=== PATIENT | male | born 1960 | race Caucasian/White ===

== ENCOUNTER 2023-10-19 02:17 | Emergency (ER) | payer OTHER ==
[~2023-10-19] VITALS: Ht 177.8 cm; Wt 81.7 kg
[2023-10-19 02:47] LABS: BASOPHILS PERCENT AUTO 1 % (0-2); EOSINOPHILS ABSOLUTE AUTO 0.45 K/mm3 (0.00-0.68); EOSINOPHILS PERCENT AUTO 3 % (0-6); Hematocrit 40.9 % (37.0-53.0); Hemoglobin 12.8 g/dL (13.5-17.5); IMMATURE GRAN ABSOLUTE AUTO 0.18 K/mm3 (0.00-0.10); IMMATURE GRAN PERCENT AUTO 1 % (0-1); LYMPHOCYTES PERCENT AUTO 27 % (21-46); MONOCYTES PERCENT AUTO 11 % (4-13); Mean Corpuscular HGB 23.1 pg (26.0-34.0); Mean Corpuscular HGB Conc 31.3 g/dL (31.5-36.5); Mean Corpuscular Volume 74 fL (80-100); Mean Platelet Volume 10.3 fL (9.1-12.4); NEUTROPHILS ABSOLUTE AUTO 9.94 K/mm3 (1.96-9.15); NEUTROPHILS PERCENT AUTO 58 % (41-73); NRBC ABSOLUTE 6.49 K/mm3 (0.00-0.02); NRBC Auto 37.8 /100 WBC (0.0-0.2); Platelet Count 516 K/mm3 (150-400); RDW Coefficient Variation 22.4 % (11.7-14.2); RDW Standard Deviation 53.1 fL (35.1-46.3); Red Blood Cell Count 5.55 M/mm3 (4.30-5.90); White Blood Cell Count 17.17 K/mm3 (4.00-11.30)
[2023-10-19 03:06] LABS: Source, Urine Voided
[2023-10-19 03:08] LABS: Bilirubin, Urine Neg (Neg); Blood, Urine Neg (Neg); Glucose Qualitative, Urine Neg (Neg); Ketones, Urine Neg (Neg); Leukocyte Esterase, Urine Neg (Neg); Nitrite, Urine Neg (Neg); Protein, Urine Neg (Neg); Urobilinogen, Urine NORM (Normal)
[2023-10-19 03:16] LABS: Albumin, Blood 3.7 g/dL (3.4-5.0); Albumin/Globulin Ratio 0.9 (0.8-1.8); Bilirubin, Total 1.7 mg/dL (0.1-1.0); Bun/Creatinine Ratio 13.9 (12.0-20.0); Calcium, Blood 8.9 mg/dL (8.5-10.1); Creatinine, Blood 0.79 mg/dL (0.60-1.20); Potassium, Blood 4.2 mmol/L (3.5-5.5); Total Protein, Blood 7.7 g/dL (6.4-8.2)
[2023-10-19 03:31] LABS: Appearance, Urine Clear (Clear); Color, Urine Yellow (P-Yellow)
[2023-10-19 04:26] VITALS: BP 126/87
== END 2023-10-19 05:37 | disposition home or self-care (01) ==
LOC: ER 02:17
PROVIDERS: Student in an Organized Health Care Education/Training Program
DX: R33.9 Retention of urine, unspecified (principal); R10.31 Right lower quadrant pain; D72.829 Elevated white blood cell count, unspecified; Z88.8 Allergy status to other drugs, medicaments and biological substances
CPT/HCPCS: 51702; 51798; 80053; 81003; 85025

== ENCOUNTER 2023-11-05 03:00 | Emergency (ER) | payer OTHER ==
[~2023-11-05] VITALS: Ht 177.8 cm; Wt 81.7 kg
[2023-11-05 03:24] VITALS: BP 139/81
[2023-11-05 04:34] LABS: Source, Urine Clean Catch
[2023-11-05 04:36] LABS: Bilirubin, Urine Neg (Neg); Blood, Urine Neg (Neg); Glucose Qualitative, Urine Neg (Neg); Ketones, Urine Neg (Neg); Leukocyte Esterase, Urine Neg (Neg); Nitrite, Urine Neg (Neg); Protein, Urine Neg (Neg); Urobilinogen, Urine NORM (Normal)
[2023-11-05 04:48] LABS: Appearance, Urine Clear (Clear); Color, Urine Yellow (P-Yellow)
== END 2023-11-05 05:52 | disposition home or self-care (01) ==
LOC: ER 03:00
PROVIDERS: Emergency Medicine
DX: E86.0 Dehydration (principal); N40.0 Benign prostatic hyperplasia without lower urinary tract symptoms; Z88.8 Allergy status to other drugs, medicaments and biological substances
CPT/HCPCS: 51798; 81003; 99283-25

== ENCOUNTER 2025-04-11 10:41 | Emergency (ER) | payer OTHER ==
[~2025-04-11] VITALS: Ht 177.8 cm; Wt 86.2 kg
[2025-04-11] MEDS ORDERED: Diltiazem HCl 5 MG / ML 5ML Vial IV ONE (11:00)
[2025-04-11 11:32] LABS: BASOPHILS ABSOLUTE AUTO 0.07 K/mm3 (0.00-0.23); BASOPHILS PERCENT AUTO 1 % (0-2); EOSINOPHILS ABSOLUTE AUTO 0.15 K/mm3 (0.00-0.68); EOSINOPHILS PERCENT AUTO 1 % (0-6); Hematocrit 35.6 % (37.0-53.0); Hemoglobin 11.2 g/dL (13.5-17.5); IMMATURE GRAN ABSOLUTE AUTO 0.12 K/mm3 (0.00-0.10); IMMATURE GRAN PERCENT AUTO 1 % (0-1); LYMPHOCYTES ABSOLUTE AUTO 3.12 K/mm3 (0.84-5.20); LYMPHOCYTES PERCENT AUTO 21 % (21-46); MONOCYTES ABSOLUTE AUTO 1.50 K/mm3 (0.16-1.47); MONOCYTES PERCENT AUTO 10 % (4-13); Mean Corpuscular HGB Conc 31.5 g/dL (31.5-36.5); Mean Corpuscular Volume 77 fL (80-100); NEUTROPHILS ABSOLUTE AUTO 10.03 K/mm3 (1.96-9.15); NEUTROPHILS PERCENT AUTO 67 % (41-73); NRBC ABSOLUTE 10.80 K/mm3 (0.00-0.02); NRBC Auto 72.0 /100 WBC (0.0-0.2); Platelet Count 291 K/mm3 (150-400); RDW Coefficient Variation 24.7 % (11.7-14.2); RDW Standard Deviation 60.5 fL (35.1-46.3)
[2025-04-11 12:00] VITALS: BP 126/98
[2025-04-11 12:10] LABS: Calcium, Ionized (POC) 1.12 mmol/L (1.10-1.46); Chloride (POC) 106 mmol/L (98-108); Creatinine (POC) 0.8 mg/dL (0.8-1.3); Glucose (ISTAT POC) 90 mg/dL (70-99); Hematocrit (POC) 45.0 % (41.0-53.0); Hemoglobin (POC) 15.3 g/dL (13.5-17.5); Potassium (POC) 3.7 mmol/L (3.5-5.5); Sodium (POC) 141 mmol/L (135-148); Total CO2 (POC) 21 mmol/L (21-32)
[2025-04-11] MEDS ORDERED: METO25ER PO (12:16)
[2025-04-11 14:14] LABS: Alanine Aminotransfer (ALT/SGP 29.0 U/L (12-78); Albumin, Blood 3.5 g/dL (3.4-5.0); Albumin/Globulin Ratio 1.0 (0.8-1.8); Anion Gap 17.0 mmol/L (3-11); Aspartate Aminotrans (AST/SGOT 60.0 U/L (12-37); Bilirubin, Total 5.5 mg/dL (0.1-1.0); Blood Urea Nitrogen 10.0 mg/dL (8-24); CO2, Blood 22.0 mmol/L (21-32); Calcium, Blood 8.2 mg/dL (8.5-10.1); Chloride, Blood 105.0 mmol/L (98-108); Creatinine, Blood 0.7 mg/dL (0.60-1.20); Globulin, Blood 3.6 g/dL (2.2-4.0); Glucose, Blood 79.0 mg/dL (70-99); Magnesium, Blood 1.9 mg/dL (1.6-2.4); Potassium, Blood 4.3 mmol/L (3.5-5.5); Sodium, Blood 140.0 mmol/L (136-145); Total Protein, Blood 7.1 g/dL (6.4-8.2)
== END 2025-04-11 12:50 | disposition home or self-care (01) ==
LOC: ER 10:41
PROVIDERS: Student in an Organized Health Care Education/Training Program
DX: I48.91 Unspecified atrial fibrillation (principal); J44.89 Other specified chronic obstructive pulmonary disease; Z86.718 Personal history of other venous thrombosis and embolism; Z86.711 Personal history of pulmonary embolism; Z88.8 Allergy status to other drugs, medicaments and biological substances; Z79.01 Long term (current) use of anticoagulants
CPT/HCPCS: 71045; 80047; 80053; 83735; 83880; 85014; 85025; 93005; 93010; 96374; 99285-25; A9270

== ENCOUNTER 2025-04-17 15:58 | Inpatient (IN) | payer OTHER ==
[~2025-04-17] VITALS: Ht 177.8 cm; Wt 81.0 kg
[~2025-04-17 15:58] MED LIST: METO25ER PO
[2025-04-17] MEDS ORDERED: NS 500 ML IV SCH (17:10)
[2025-04-17] MEDS ORDERED: Metoprolol Tartrate 1 MG/ML 5 ML VIAL IV PRN ×2 (17:10→22:20)
[2025-04-17 17:25] LABS: BASOPHILS ABSOLUTE AUTO 0.08 K/mm3 (0.00-0.23); BASOPHILS PERCENT AUTO 1 % (0-2); EOSINOPHILS ABSOLUTE AUTO 0.21 K/mm3 (0.00-0.68); EOSINOPHILS PERCENT AUTO 1 % (0-6); Hematocrit 36.9 % (37.0-53.0); Hemoglobin 11.7 g/dL (13.5-17.5); IMMATURE GRAN ABSOLUTE AUTO 0.10 K/mm3 (0.00-0.10); IMMATURE GRAN PERCENT AUTO 1 % (0-1); LYMPHOCYTES ABSOLUTE AUTO 4.18 K/mm3 (0.84-5.20); LYMPHOCYTES PERCENT AUTO 28 % (21-46); MONOCYTES ABSOLUTE AUTO 1.70 K/mm3 (0.16-1.47); MONOCYTES PERCENT AUTO 11 % (4-13); Mean Corpuscular HGB Conc 31.7 g/dL (31.5-36.5); Mean Corpuscular Volume 78 fL (80-100); NEUTROPHILS ABSOLUTE AUTO 8.68 K/mm3 (1.96-9.15); NEUTROPHILS PERCENT AUTO 58 % (41-73); NRBC ABSOLUTE 6.58 K/mm3 (0.00-0.02); NRBC Auto 44.0 /100 WBC (0.0-0.2); Platelet Count 315 K/mm3 (150-400); RDW Coefficient Variation 24.1 % (11.7-14.2); RDW Standard Deviation 59.9 fL (35.1-46.3)
[2025-04-17 17:40] LABS: Prothrombin Time Results 13.4 Sec (9.7-11.5)
[2025-04-17 18:21] LABS: Alanine Aminotransfer (ALT/SGP 29.0 U/L (12-78); Albumin, Blood 3.6 g/dL (3.4-5.0); Albumin/Globulin Ratio 0.9 (0.8-1.8); Anion Gap 8.0 mmol/L (3-11); Aspartate Aminotrans (AST/SGOT 37.0 U/L (12-37); Bilirubin, Total 4.8 mg/dL (0.1-1.0); Blood Urea Nitrogen 11.0 mg/dL (8-24); CO2, Blood 24.0 mmol/L (21-32); Calcium, Blood 8.3 mg/dL (8.5-10.1); Chloride, Blood 107.0 mmol/L (98-108); Creatinine, Blood 0.72 mg/dL (0.60-1.20); Globulin, Blood 4.0 g/dL (2.2-4.0); Glucose, Blood 90.0 mg/dL (70-99); Potassium, Blood 3.4 mmol/L (3.5-5.5); Sodium, Blood 136.0 mmol/L (136-145); Total Protein, Blood 7.6 g/dL (6.4-8.2)
[2025-04-17] MEDS ORDERED: Magnesium Sulf 2 GM/Water 50ML 50 ML IV ONE (19:00)
[2025-04-17] MEDS ORDERED: Albuterol 2.5 MG/3 ML VIAL INH PRN (21:50)
[2025-04-17] MEDS ORDERED: Ipratropium/Albuterol SulF 2.5-0.5MG/3 ML Amp INH SCH (21:50)
[2025-04-17] MEDS ORDERED: Mometasone Furoate Inhaler 220 mcg 14 ACT INH SCH (21:50)
[2025-04-17] MEDS ORDERED: Furosemide 10 MG / ML 2ML Vial IV ONE (21:50)
[2025-04-17] MEDS ORDERED: Ondansetron HCl 2 MG / ML 2ML Vial IV PRN (21:50)
[2025-04-17 23:44] VITALS: BP 104/80
[2025-04-18 02:00] LABS: Hematocrit 36.0 % (37.0-53.0); Hemoglobin 11.3 g/dL (13.5-17.5); Mean Corpuscular HGB Conc 31.4 g/dL (31.5-36.5); Mean Corpuscular Volume 77 fL (80-100); NRBC ABSOLUTE 6.00 K/mm3 (0.00-0.02); NRBC Auto 38.5 /100 WBC (0.0-0.2); Platelet Count 305 K/mm3 (150-400); RDW Coefficient Variation 23.9 % (11.7-14.2); RDW Standard Deviation 58.3 fL (35.1-46.3)
[2025-04-18 02:26] LABS: Anion Gap 8.0 mmol/L (3-11); Blood Urea Nitrogen 13.0 mg/dL (8-24); CO2, Blood 26.0 mmol/L (21-32); Calcium, Blood 8.1 mg/dL (8.5-10.1); Chloride, Blood 108.0 mmol/L (98-108); Creatinine, Blood 0.82 mg/dL (0.60-1.20); Glucose, Blood 105.0 mg/dL (70-99); Magnesium, Blood 2.1 mg/dL (1.6-2.4); Potassium, Blood 3.6 mmol/L (3.5-5.5); Sodium, Blood 138.0 mmol/L (136-145)
[2025-04-18 03:12] VITALS: BP 94/76
[2025-04-18] MEDS ORDERED: ELIQUIS5 M2 PO (04:08)
[2025-04-18] MEDS ORDERED: TIOT18 INH (04:08)
--- NOTE | 2025-04-18 06:08 | NUR ---
SHIFT SUMMARY PT ARRIVED A&OX4. VSS ON 2L NC (BASELINE) >92%. NO SOB NOTED HOWEVER VERY WEAK ON FEET. ON TELE PT ARRIVED IN AFLUTTER 90s-100s. NO CHEST PAIN OR PRESSURE PER PT. IV LASIX GIVEN PER EMAR. PT ABLE TO STAND AT BEDSIDE TO USE URINAL. SEE CHART FOR I&Os. PT RESTING COMFORTABLY IN BED WITH NO FURTHER QUESTIONS OR CONCERNS AT THIS TIME. WILL CONTINUE WITH PLAN OF CARE.
[2025-04-18 07:22] VITALS: BP 103/69
[2025-04-18] MEDS ORDERED: Amiodarone HCl 450 MG in NS 250 ML IV SCH (10:30)
[2025-04-18] MEDS ORDERED: Amiodarone HCl 150 MG in NS 100 ML IV ONE (10:50)
[2025-04-18 10:52] VITALS: BP 102/86
[2025-04-18 15:18] VITALS: BP 123/86
--- NOTE | 2025-04-18 18:16 | NUR ---
SHIFT SUMMARY; ASSUMED CARE AT 0700. A/A/OX4. COOPERATIVE WITH CARE. HR IN AM FLUTTER 130'S. 5MG IV LOPRESSOR PUSH PER EMAR WITH MINIMAL RESULTS. SPOKE WITH DR. REYES. AMNIO STARTED PER EMAR. 2L 02 VIA NC WHICH IS BASELINE. SPEAKING IN FULL SENTENCES. UP TO BEDSIDE IN ROOM TO USE URNIAL. USES CALL LIGHT. VSS, WILL CONTINUE TO MONITOR AND TREAT UNTIL REPORT GIVEN TO NOC SHIFT RN.
[2025-04-18 20:13] VITALS: BP 102/76
[2025-04-19] VITALS (7 sets, daily range): BP systolic 96–120; BP diastolic 70–85
[2025-04-19 04:12] LABS: BASOPHILS ABSOLUTE AUTO 0.07 K/mm3 (0.00-0.23); BASOPHILS PERCENT AUTO 1 % (0-2); EOSINOPHILS ABSOLUTE AUTO 0.25 K/mm3 (0.00-0.68); EOSINOPHILS PERCENT AUTO 2 % (0-6); Hematocrit 33.1 % (37.0-53.0); Hemoglobin 10.8 g/dL (13.5-17.5); IMMATURE GRAN ABSOLUTE AUTO 0.13 K/mm3 (0.00-0.10); IMMATURE GRAN PERCENT AUTO 1 % (0-1); LYMPHOCYTES ABSOLUTE AUTO 3.73 K/mm3 (0.84-5.20); LYMPHOCYTES PERCENT AUTO 25 % (21-46); MONOCYTES ABSOLUTE AUTO 1.85 K/mm3 (0.16-1.47); MONOCYTES PERCENT AUTO 12 % (4-13); Mean Corpuscular HGB Conc 32.6 g/dL (31.5-36.5); Mean Corpuscular Volume 76 fL (80-100); NEUTROPHILS ABSOLUTE AUTO 9.07 K/mm3 (1.96-9.15); NEUTROPHILS PERCENT AUTO 60 % (41-73); NRBC ABSOLUTE 6.44 K/mm3 (0.00-0.02); NRBC Auto 42.6 /100 WBC (0.0-0.2); Platelet Count 291 K/mm3 (150-400); RDW Coefficient Variation 23.3 % (11.7-14.2); RDW Standard Deviation 55.4 fL (35.1-46.3)
[2025-04-19 04:31] LABS: Alanine Aminotransfer (ALT/SGP 24.0 U/L (12-78); Albumin, Blood 3.1 g/dL (3.4-5.0); Albumin/Globulin Ratio 0.9 (0.8-1.8); Anion Gap 11.0 mmol/L (3-11); Aspartate Aminotrans (AST/SGOT 33.0 U/L (12-37); Bilirubin, Total 4.6 mg/dL (0.1-1.0); Blood Urea Nitrogen 14.0 mg/dL (8-24); CO2, Blood 23.0 mmol/L (21-32); Calcium, Blood 8.1 mg/dL (8.5-10.1); Chloride, Blood 109.0 mmol/L (98-108); Creatinine, Blood 0.71 mg/dL (0.60-1.20); Globulin, Blood 3.6 g/dL (2.2-4.0); Glucose, Blood 107.0 mg/dL (70-99); Potassium, Blood 3.7 mmol/L (3.5-5.5); Sodium, Blood 139.0 mmol/L (136-145); Total Protein, Blood 6.7 g/dL (6.4-8.2)
--- NOTE | 2025-04-19 05:27 | NUR ---
AMIODARONE INFUSION STOPPED AT 0520.
--- NOTE | 2025-04-19 06:37 | NUR ---
PT STABLE THROUGHOUT SHIFT. PT AOX4, INDEPENDENT IN ROOM. PT USES URINAL AT BEDSIDE. PT HAS HAD VERY GOOD URINARY OUTPUT. URINE HAS STARTED TO DARKEN IN COLOR, GOING FROM YELLOW TO TEA COLORED AT THIS TIME. EDEMA MARKEDLY IMPROVED. HR IMPROVED FROM 120 TO 80-90s. PT REMAINS IN A.FLUTTER. PT ON BASELINE O2 2L AND MAINTAING GOOD SAT. ALL OTHER VITAL SIGNS WNL.
--- NOTE | 2025-04-19 07:03 | NUR ---
AMIODARONE RESTARTED AT 0630, NO PO AMIODARONE AVAILABLE AT THIS TIME.
--- NOTE | 2025-04-19 17:50 | NUR ---
SHIFT SUMMARY PATIENT AOX4 ABLE TO MAKE NEEDS KNOWN. HE DENIES CHEST PAIN OR SOB TODAY. HE DOES STATE HE HAD PRESSURE WITH ACTIVITY. HIS VITALS ARE STABLE WITH A HR 100 TO 120s. CARDIO AND PULM AND HOSP SPOKE WITH PATIENT AT BEDSIDE ALL HIS QUESTIONS ANSWERED.
[2025-04-19 17:59] LABS: HIV 1,2 COMBO ANTIGEN/ANTIBODY Negative (Negative)
--- NOTE | 2025-04-19 20:37 | NUR ---
ASSUMPTION OF CARE PT A&O X4, ANXIOUS AT TIMES, COOPERATIVE TO CARE. HR IN THE 110'S-120'S, PT DID REACH TO 127BPM WHILE STANDING TO USE URINAL. HE DENIES ANY CP/PRESSURE, SBP IN THE 100'S, MAP >65. PT O2 AT 90% ON 2L, PER PT 2L IS BASELINE FOR HIM. PT OCASSIONALLY DESATS TO THE LOW 80'S IF HE STARTS TALKING A BUNCH OR TAKES OFF HIS OXYGEN. PT HAS EDEMA IN BLE. PT DIURESING WELL. PT TO BE NPO AT MIDNIGHT FOR POSSIBLE CARDIOVERSION IN THE AM. PT RESTING IN BED AT THIS TIME. CALL LIGHT IN REACH.
[2025-04-19 22:40] LABS: CYCLIC CITRULLINATED PEP,IGG/A 8 Units (0-19)
[2025-04-19 23:15] LABS: RHEUMATOID FACTOR <10 IU/mL (0-14)
[2025-04-20] VITALS (8 sets, daily range): BP systolic 92–116; BP diastolic 62–82
[2025-04-20 03:38] LABS: BASOPHILS ABSOLUTE AUTO 0.07 K/mm3 (0.00-0.23); BASOPHILS PERCENT AUTO 1 % (0-2); EOSINOPHILS ABSOLUTE AUTO 0.30 K/mm3 (0.00-0.68); EOSINOPHILS PERCENT AUTO 2 % (0-6); Hematocrit 33.8 % (37.0-53.0); Hemoglobin 10.7 g/dL (13.5-17.5); IMMATURE GRAN ABSOLUTE AUTO 0.10 K/mm3 (0.00-0.10); IMMATURE GRAN PERCENT AUTO 1 % (0-1); LYMPHOCYTES ABSOLUTE AUTO 2.82 K/mm3 (0.84-5.20); LYMPHOCYTES PERCENT AUTO 21 % (21-46); MONOCYTES ABSOLUTE AUTO 1.62 K/mm3 (0.16-1.47); MONOCYTES PERCENT AUTO 12 % (4-13); Mean Corpuscular HGB Conc 31.7 g/dL (31.5-36.5); Mean Corpuscular Volume 76 fL (80-100); NEUTROPHILS ABSOLUTE AUTO 8.65 K/mm3 (1.96-9.15); NEUTROPHILS PERCENT AUTO 64 % (41-73); NRBC ABSOLUTE 6.20 K/mm3 (0.00-0.02); NRBC Auto 45.7 /100 WBC (0.0-0.2); Platelet Count 301 K/mm3 (150-400); RDW Coefficient Variation 23.4 % (11.7-14.2); RDW Standard Deviation 55.7 fL (35.1-46.3)
[2025-04-20 04:01] LABS: Anion Gap 8.0 mmol/L (3-11); Blood Urea Nitrogen 15.0 mg/dL (8-24); CO2, Blood 26.0 mmol/L (21-32); Calcium, Blood 8.2 mg/dL (8.5-10.1); Chloride, Blood 107.0 mmol/L (98-108); Creatinine, Blood 0.76 mg/dL (0.60-1.20); Glucose, Blood 104.0 mg/dL (70-99); Potassium, Blood 3.7 mmol/L (3.5-5.5); Sodium, Blood 137.0 mmol/L (136-145)
--- NOTE | 2025-04-20 05:05 | NUR ---
SHIFT SUMMARY PT A&O X4, PT ANXIOUS T/O SHIFT ABOUT CONTROLLING HIS HR. THIS RN SPENT LOTS OF TIME EDUCATING PT AND REASSURING PT. PT IN AFLUTTER. AT START OF SHIFT WHILE PT WAS AWAKE HR IN THE 110'S-120'S. EARLY IN SHIFT PT STARTED TO RELAX AND REST IN BED, PT HR DECREASED AND HAS REMANINED IN THE 70'S-80'S WITH OCASSIONAL RATES IN THE LOW 100'S BUT NOT SUSTAINING ABOVE 100. PT DENIES ANY CP/PRESSURE T/O NIGHT. SBP SOFT IN THE 90'S-100'S, ASYMPTOMATIC. MAP >65. PTS O2 >90% ON 2-3L VIA NC, PT ON 2L AT THIS TIME WITH BASELINE OF 2L. HE DOES HAVE SOME SOB WITH EXERTION. PT NPO SINCE MIDNIGHT FOR POSSIBLE CARDIOVERSION THIS AM. PT RESTING IN BED A THIS TIME. CALL LIGHT IN REACH. WILL MONITOR PT AND REPORT TO ONCOMING RN.
[2025-04-20] MEDS ORDERED: Ipratropium/Albuterol SulF 2.5-0.5MG/3 ML Amp INH PRN (13:55)
--- NOTE | 2025-04-20 18:01 | NUR ---
SHIFT SUMMARY PATIENT AOX4 ABLE TO MAKE NEEDS KNOWN. DENIES CHEST PAIN OR SOB. HE IS ON 2L O2. HE IS TOLERATING HIS MEALS AND AMBULATING TO THE RESTROOM INDEPENDENTLY. HE SPOKE WITH THE HOSP CARD AND PULM DOCTORS AT BEDSIDE. HE DID NOT GO FOR CARDIOVERSION TODAY. THE CLEANERS STARTED HIM ON DIGOXIN. HIS VITALS ARE STABLE WITH A SOFT BP MAP GREATER THAN 65.
[2025-04-20] MEDS ORDERED: Morphine Sulfate 4 MG/1 ML Injection IV PRN (18:35)
[2025-04-20] MEDS ORDERED: OxyCODONE 5 mg/Acetamin 325 mg TABLET PO PRN (19:10)
--- NOTE | 2025-04-20 19:11 | NUR ---
CHEST PAIN PATIENT STATED HE HAD SOME MORE CHEST PAIN 4/10 STABBING THAT COMES AND GOES FOR THE LAST 30 MIN VITALS STABLE HOSPITALIST AWARE
[2025-04-21 03:28] VITALS: BP 93/67
[2025-04-21 03:54] LABS: BASOPHILS ABSOLUTE AUTO 0.05 K/mm3 (0.00-0.23); BASOPHILS PERCENT AUTO 0 % (0-2); EOSINOPHILS ABSOLUTE AUTO 0.28 K/mm3 (0.00-0.68); EOSINOPHILS PERCENT AUTO 2 % (0-6); Hematocrit 34.6 % (37.0-53.0); Hemoglobin 11.0 g/dL (13.5-17.5); IMMATURE GRAN ABSOLUTE AUTO 0.21 K/mm3 (0.00-0.10); IMMATURE GRAN PERCENT AUTO 1 % (0-1); LYMPHOCYTES ABSOLUTE AUTO 2.72 K/mm3 (0.84-5.20); LYMPHOCYTES PERCENT AUTO 16 % (21-46); MONOCYTES ABSOLUTE AUTO 1.89 K/mm3 (0.16-1.47); MONOCYTES PERCENT AUTO 11 % (4-13); Mean Corpuscular HGB Conc 31.8 g/dL (31.5-36.5); Mean Corpuscular Volume 76 fL (80-100); NEUTROPHILS ABSOLUTE AUTO 11.86 K/mm3 (1.96-9.15); NEUTROPHILS PERCENT AUTO 70 % (41-73); NRBC ABSOLUTE 5.00 K/mm3 (0.00-0.02); NRBC Auto 29.4 /100 WBC (0.0-0.2); Platelet Count 285 K/mm3 (150-400); RDW Coefficient Variation 23.2 % (11.7-14.2); RDW Standard Deviation 55.8 fL (35.1-46.3)
[2025-04-21 04:14] LABS: Alanine Aminotransfer (ALT/SGP 23.0 U/L (12-78); Albumin, Blood 3.1 g/dL (3.4-5.0); Albumin/Globulin Ratio 0.8 (0.8-1.8); Anion Gap 10.0 mmol/L (3-11); Aspartate Aminotrans (AST/SGOT 32.0 U/L (12-37); Bilirubin, Total 4.4 mg/dL (0.1-1.0); Blood Urea Nitrogen 15.0 mg/dL (8-24); CO2, Blood 24.0 mmol/L (21-32); Calcium, Blood 8.2 mg/dL (8.5-10.1); Chloride, Blood 107.0 mmol/L (98-108); Creatinine, Blood 0.65 mg/dL (0.60-1.20); Globulin, Blood 3.7 g/dL (2.2-4.0); Glucose, Blood 91.0 mg/dL (70-99); Potassium, Blood 3.9 mmol/L (3.5-5.5); Sodium, Blood 137.0 mmol/L (136-145); Total Protein, Blood 6.8 g/dL (6.4-8.2)
--- NOTE | 2025-04-21 05:25 | NUR ---
SHIFT SUMMARY PT A&O X4, ANXIOUS AT TIMES, COOPERATIVE TO CARE. AT START OF SHIFT PT HR IN THE 110'S. PT RECIEVED IV DIGOXIN. HR T/O THE NIGHT HAS BEEN IN THE 60'S, AFLUTTER. HE HAD SOME CP AT START OF SHIFT BUT IT RESOLVED AND HE HAS DENIED ANY SINCE. SBP SOFT IN THE 90'S, MAP >65. O2 >92% ON 2L VIA NC, 2L BL FOR PT. PT RESTING IN BED AT THIS TIME. CALL LIGHT IN REACH. WILL MONITOR PT AND REPORT TO ONCOMING RN.
[2025-04-21 08:08] VITALS: BP 110/72
[2025-04-21] MEDS ORDERED: METO50ER PO (09:50)
[2025-04-21] MEDS ORDERED: Amiodarone HCl200 MG PO (09:53)
[2025-04-21] MEDS ORDERED: DIGOX125 MC1 PO (09:54)
[2025-04-21] MEDS ORDERED: ASMANEX220 M14 INH (09:56)
[2025-04-21] MEDS ORDERED: FURO40 PO (09:57)
[2025-04-21] MEDS ORDERED: K-TAB ER20 ME1 PO (09:58)
[2025-04-21] MEDS ORDERED: BUSP5 PO (10:02)
[2025-04-21 11:29] VITALS: BP 110/87
--- NOTE | 2025-04-21 14:12 | NUR ---
DISCHARGE SUMMARY PT A&OX4, VSS. PT CLEARED FOR DC. DISCHARGE MEDICATION REVIEWED EXTENSIVELY W/ PT, MEDICATION SCHEDULE/CHART MADE CUSTOM TO HELP AVOID AM/PM ERRORS. MEDICATIONS FAXED TO [facility]. TELEMETRY REMOVED. IV REMOVED. DISCHARGE INSTRUCTIONS AND FOLLOW UP APPTS REVIEWED WITH PT AND GIVEN IN WRITING. PT WHEELED TO PRIVATE VEHICLE WITH ALL BELONGINGS.
[2025-04-22 18:28] LABS: ANTINUCLEAR AB (ANA),HEP-2,IGG Detected (<1:80)
== END 2025-04-21 12:30 | disposition home or self-care (01) | DRG 308 ==
LOC: ER 15:58 → PCU 15:59
PROVIDERS: Internal Medicine; Internal Medicine Critical Care Medicine; Nurse Practitioner Acute Care; Student in an Organized Health Care Education/Training Program; ADMIT Internal Medicine
DX: I48.19 Other persistent atrial fibrillation (principal); I50.33 Acute on chronic diastolic (congestive) heart failure; I48.92 Unspecified atrial flutter; F41.9 Anxiety disorder, unspecified; I27.20 Pulmonary hypertension, unspecified; R16.0 Hepatomegaly, not elsewhere classified; J44.89 Other specified chronic obstructive pulmonary disease; D72.829 Elevated white blood cell count, unspecified; E87.6 Hypokalemia; Z87.891 Personal history of nicotine dependence; Z79.01 Long term (current) use of anticoagulants; Z86.718 Personal history of other venous thrombosis and embolism; Z86.711 Personal history of pulmonary embolism; Z88.8 Allergy status to other drugs, medicaments and biological substances
CPT/HCPCS: 36415; 71260; 76705; 80048; 80053; 80162; 82248; 83690; 83735; 83880; 84443; 84484; 85025; 85027; 85610; 86039; 86200; 86431; 87389; 93005; 93010; 93306; 94640; 94645; 94664; 94760; 94762; 96365-59; 96366-59; 96367; 96375-59; 96376; 96376-59; 99285-25; A9270; G0378; J0282; J1160; J1938; J3475; J7030; J7050; Q9967

== ENCOUNTER 2025-04-26 19:42 | Observation (INO) | payer OTHER ==
[~2025-04-26] VITALS: Ht 172.7 cm; Wt 81.6 kg
[~2025-04-26 19:42] MED LIST changes: +ASMANEX220 M14 INH; +Amiodarone HCl200 MG PO; +BUSP5 PO; +DIGOX125 MC1 PO; +ELIQUIS5 M2 PO; +FURO40 PO; +K-TAB ER20 ME1 PO; +METO50ER PO; +TIOT18 INH
[2025-04-26 20:14] LABS: BASOPHILS ABSOLUTE AUTO 0.09 K/mm3 (0.00-0.23); BASOPHILS PERCENT AUTO 1 % (0-2); EOSINOPHILS ABSOLUTE AUTO 0.13 K/mm3 (0.00-0.68); EOSINOPHILS PERCENT AUTO 1 % (0-6); Hematocrit 35.4 % (37.0-53.0); Hemoglobin 11.5 g/dL (13.5-17.5); IMMATURE GRAN ABSOLUTE AUTO 0.16 K/mm3 (0.00-0.10); IMMATURE GRAN PERCENT AUTO 1 % (0-1); LYMPHOCYTES ABSOLUTE AUTO 3.27 K/mm3 (0.84-5.20); LYMPHOCYTES PERCENT AUTO 20 % (21-46); MONOCYTES ABSOLUTE AUTO 1.85 K/mm3 (0.16-1.47); MONOCYTES PERCENT AUTO 11 % (4-13); Mean Corpuscular HGB Conc 32.5 g/dL (31.5-36.5); Mean Corpuscular Volume 76 fL (80-100); NEUTROPHILS ABSOLUTE AUTO 10.79 K/mm3 (1.96-9.15); NEUTROPHILS PERCENT AUTO 66 % (41-73); NRBC ABSOLUTE 7.60 K/mm3 (0.00-0.02); NRBC Auto 46.7 /100 WBC (0.0-0.2); Platelet Count 311 K/mm3 (150-400); RDW Coefficient Variation 22.9 % (11.7-14.2); RDW Standard Deviation 53.0 fL (35.1-46.3)
[2025-04-26 20:33] LABS: Alanine Aminotransfer (ALT/SGP 38.0 U/L (12-78); Albumin, Blood 3.3 g/dL (3.4-5.0); Albumin/Globulin Ratio 0.8 (0.8-1.8); Anion Gap 10.0 mmol/L (3-11); Aspartate Aminotrans (AST/SGOT 42.0 U/L (12-37); Bilirubin, Total 4.0 mg/dL (0.1-1.0); Blood Urea Nitrogen 18.0 mg/dL (8-24); CO2, Blood 23.0 mmol/L (21-32); Calcium, Blood 8.1 mg/dL (8.5-10.1); Chloride, Blood 108.0 mmol/L (98-108); Creatinine, Blood 0.95 mg/dL (0.60-1.20); Globulin, Blood 4.2 g/dL (2.2-4.0); Glucose, Blood 115.0 mg/dL (70-99); Potassium, Blood 3.9 mmol/L (3.5-5.5); Sodium, Blood 137.0 mmol/L (136-145); Total Protein, Blood 7.5 g/dL (6.4-8.2)
[2025-04-26] MEDS ORDERED: Ipratropium/Albuterol SulF 2.5-0.5MG/3 ML Amp INH SCH (23:00)
[2025-04-26] MEDS ORDERED: Mometasone Furoate Inhaler 220 mcg 14 ACT INH SCH (23:05)
[2025-04-27 00:53] VITALS: BP 128/86
[2025-04-27] MEDS ORDERED: TADA10TA (02:03)
--- NOTE | 2025-04-27 02:28 | NUR ---
ADMIT NOTE HANDOFF RECEIVED FROM FRONT END DEVELOPER NOE. PT ARRIVED TO FLOOR VIA WC. PT ORIENTED TO UNIT. CALL BUTTON WITHIN REACH. PERSONAL POSSESSIONS WITH PT. TELEMETRY NOW IN PLACE: NSR @ 66 BPM.
[2025-04-27 03:53] VITALS: BP 93/53
--- NOTE | 2025-04-27 04:14 | NUR ---
SHIFT SUMMARY ADMITTED FOR PULMONARY HTN THIS SHIFT. FULL CODE. WE ARE MONITORING LABS. STRICT I&O'S. TELEMETRY: NSR @ 66 BPM. HE IS ON 2 LPM O2 VIA NC, PRN. THAT IS HIS BASELINE. HE IS ON ELIQUIS. HE IS A&O X3-4. CARDIAC DIET. STANDBY ASSIST DUE TO LINES/TUBES AND DYSPNEA W/EXERTION. HE IS A [facility] PATIENT. RECENT HEART CATH.
[2025-04-27 05:13] LABS: BASOPHILS ABSOLUTE AUTO 0.07 K/mm3 (0.00-0.23); BASOPHILS PERCENT AUTO 1 % (0-2); EOSINOPHILS ABSOLUTE AUTO 0.18 K/mm3 (0.00-0.68); EOSINOPHILS PERCENT AUTO 1 % (0-6); Hematocrit 32.1 % (37.0-53.0); Hemoglobin 10.6 g/dL (13.5-17.5); IMMATURE GRAN ABSOLUTE AUTO 0.15 K/mm3 (0.00-0.10); IMMATURE GRAN PERCENT AUTO 1 % (0-1); LYMPHOCYTES ABSOLUTE AUTO 3.23 K/mm3 (0.84-5.20); LYMPHOCYTES PERCENT AUTO 21 % (21-46); MONOCYTES ABSOLUTE AUTO 2.00 K/mm3 (0.16-1.47); MONOCYTES PERCENT AUTO 13 % (4-13); Mean Corpuscular HGB Conc 33.0 g/dL (31.5-36.5); Mean Corpuscular Volume 75 fL (80-100); NEUTROPHILS ABSOLUTE AUTO 9.87 K/mm3 (1.96-9.15); NEUTROPHILS PERCENT AUTO 64 % (41-73); NRBC ABSOLUTE 7.24 K/mm3 (0.00-0.02); NRBC Auto 46.7 /100 WBC (0.0-0.2); Platelet Count 290 K/mm3 (150-400); RDW Coefficient Variation 22.3 % (11.7-14.2); RDW Standard Deviation 50.3 fL (35.1-46.3)
[2025-04-27 05:39] LABS: Alanine Aminotransfer (ALT/SGP 33.0 U/L (12-78); Albumin, Blood 3.0 g/dL (3.4-5.0); Albumin/Globulin Ratio 0.8 (0.8-1.8); Anion Gap 11.0 mmol/L (3-11); Aspartate Aminotrans (AST/SGOT 32.0 U/L (12-37); Bilirubin, Total 3.8 mg/dL (0.1-1.0); Blood Urea Nitrogen 20.0 mg/dL (8-24); CO2, Blood 22.0 mmol/L (21-32); Calcium, Blood 7.9 mg/dL (8.5-10.1); Chloride, Blood 107.0 mmol/L (98-108); Creatinine, Blood 0.86 mg/dL (0.60-1.20); Globulin, Blood 3.6 g/dL (2.2-4.0); Glucose, Blood 93.0 mg/dL (70-99); Magnesium, Blood 1.8 mg/dL (1.6-2.4); Potassium, Blood 3.5 mmol/L (3.5-5.5); Sodium, Blood 136.0 mmol/L (136-145); Total Protein, Blood 6.6 g/dL (6.4-8.2)
[2025-04-27 07:36] VITALS: BP 108/74
[2025-04-27] MEDS ORDERED: Potassium Chloride 10 Meq Tablet SA PO SCH (09:00)
--- NOTE | 2025-04-27 09:11 | NUR ---
ASSUMPTION OF CARE: THIS RN ASSUMED CARE OF PATIENT FOR THIRD DAY. ACCOMPANIED BY ORIENTING PUMP TESTERLAURA. AWAKE DURING SHIFT CHANGE REPORT. LYING IN BED c HOB ELEVATED. BREATHING EVEN AND UNLABORED ON 2.5LPM/NC (1-3LPM/NC PRN AT BASELINE). MOST RECENT TELE STRIP IN CHART READS SINUS SCOUT @ 56bpm c [employer] AV BLOCK. BED IN LOWEST POSITION. CALL LIGHT WITHIN REACH. ACUTE NEEDS MET.
[2025-04-27 15:48] VITALS: BP 114/79
--- NOTE | 2025-04-27 18:06 | NUR ---
SHIFT SUMMARY: A&OX4 THIS SHIFT. PLEASANT AND COOPERATIVE WITH CARE. UP TO EOB INDEPENDENTLY, BUT USES A SBA TO AMBULATE. MEDICATED THIS SHIFT PER EMAR. REMAINS ON 3L O2 PRN WITH O2 SATS >90%. DENIES SHORTNESS OF BREATH WHEN AT REST, BUT HAS DYSPNEA WHEN AMBULATING. DENIES CHEST PAIN AND/ OR DISCOMFORT. NO TELE EVENTS THIS SHIFT. CALL LT WITHIN REACH. BED IN THE LOWEST POSITION. LYING IN BED AT THIS TIME. BREATHING EQUAL AND NON LABORED.
--- NOTE | 2025-04-27 18:44 | NUR ---
ALL NEW MEDS GIVEN AND TELE STRIPS REVIEWED BY THIS RN.
[2025-04-27 19:52] VITALS: BP 105/70
[2025-04-28 00:43] VITALS: BP 97/63
[2025-04-28 04:58] VITALS: BP 98/63
[2025-04-28 05:28] LABS: BASOPHILS ABSOLUTE AUTO 0.06 K/mm3 (0.00-0.23); BASOPHILS PERCENT AUTO 0 % (0-2); EOSINOPHILS ABSOLUTE AUTO 0.15 K/mm3 (0.00-0.68); EOSINOPHILS PERCENT AUTO 1 % (0-6); Hematocrit 31.0 % (37.0-53.0); Hemoglobin 10.0 g/dL (13.5-17.5); IMMATURE GRAN ABSOLUTE AUTO 0.17 K/mm3 (0.00-0.10); IMMATURE GRAN PERCENT AUTO 1 % (0-1); LYMPHOCYTES ABSOLUTE AUTO 2.76 K/mm3 (0.84-5.20); LYMPHOCYTES PERCENT AUTO 19 % (21-46); MONOCYTES ABSOLUTE AUTO 1.62 K/mm3 (0.16-1.47); MONOCYTES PERCENT AUTO 11 % (4-13); Mean Corpuscular HGB Conc 32.3 g/dL (31.5-36.5); Mean Corpuscular Volume 75 fL (80-100); NEUTROPHILS ABSOLUTE AUTO 9.84 K/mm3 (1.96-9.15); NEUTROPHILS PERCENT AUTO 67 % (41-73); NRBC ABSOLUTE 6.65 K/mm3 (0.00-0.02); NRBC Auto 45.5 /100 WBC (0.0-0.2); Platelet Count 293 K/mm3 (150-400); RDW Coefficient Variation 22.8 % (11.7-14.2); RDW Standard Deviation 50.1 fL (35.1-46.3)
[2025-04-28 06:01] LABS: Alanine Aminotransfer (ALT/SGP 35.0 U/L (12-78); Albumin, Blood 3.0 g/dL (3.4-5.0); Albumin/Globulin Ratio 0.9 (0.8-1.8); Anion Gap 9.0 mmol/L (3-11); Aspartate Aminotrans (AST/SGOT 33.0 U/L (12-37); Bilirubin, Total 3.6 mg/dL (0.1-1.0); Blood Urea Nitrogen 21.0 mg/dL (8-24); CO2, Blood 22.0 mmol/L (21-32); Calcium, Blood 7.9 mg/dL (8.5-10.1); Chloride, Blood 109.0 mmol/L (98-108); Creatinine, Blood 0.84 mg/dL (0.60-1.20); Globulin, Blood 3.5 g/dL (2.2-4.0); Glucose, Blood 97.0 mg/dL (70-99); Potassium, Blood 3.8 mmol/L (3.5-5.5); Sodium, Blood 136.0 mmol/L (136-145); Total Protein, Blood 6.5 g/dL (6.4-8.2)
--- NOTE | 2025-04-28 06:48 | NUR ---
SHIFT SUMMARY PT A/Ox4, VSS ON 2L, SO2 88-90% WHEN ON ROOM AIR. PT REFUSED NASAL CANNULA PERIODICALLY, EDUCATION PROVIDED, HUMIDITY ADDED. PT REPORTS HEADACHE, 325MG TYLENOL EFFECTIVE; PT REFUSED FULL DOSE. NO ACUTE CHANGES OVERNIGHT.
[2025-04-28 07:17] VITALS: BP 95/63
[2025-04-28 11:26] VITALS: BP 107/73
--- NOTE | 2025-04-28 12:51 | NUR ---
DISCHARGE NOTE: A&OX4 THROUGHOUT SHIFT. PT EDUCATION AND DISCHARGE INSTRUCTIONS COMMUNICATED WITH PT. PROVIDED THIS NURSE WITH VERBAL UNDERSTANDING. IV AND TELE REMOVED PRIOR TO LEAVING. MEDICATION[facility]ED TO [facility]. ESCORTED OUT VIA W/C WITH STAFF.
[2025-04-28] MEDS ORDERED: METO50ER (13:00)
--- NOTE | 2025-04-28 14:30 | NUR ---
DR. LAZCANO PUT IN MED REC EDIT AFTER PATIENT HAD ALREADY LEFT. CALL MADE TO DR. LAZCANO TO NOTIFY AND THAT THE PRESCRIPTION DIDN'T HAVE AN ACTUAL RX NEEDED ORDER OR QUANITY. PER DR. LAZCANO QUANITY OF 60. HE STATES THAT DUE TO THE PATIENT ALREADY BEING GONE HE COULDN'T ADD THE ORDER FOR THE METOPROLOL 37.[address]. [address] LAZCANO THAT I COULD CALL IT INTO THE [facility]. CALL MADE TO BOTH [facility] AND THE PATIENT. [facility] WOULDN'T TAKE A VERBAL OVER THE PHONE. FAXED MED REC EDIT TO PHARMACY.
== END 2025-04-28 12:51 | disposition home or self-care (01) ==
LOC: ER 19:42 → MEDS 22:57 → ENPENDDIS 04-28 12:01 → MEDS 04-28 12:51
PROVIDERS: Emergency Medicine; Family Medicine; ADMIT Student in an Organized Health Care Education/Training Program
DX: I27.29 Other secondary pulmonary hypertension (principal); J44.9 Chronic obstructive pulmonary disease, unspecified; N40.0 Benign prostatic hyperplasia without lower urinary tract symptoms; Z86.711 Personal history of pulmonary embolism; Z86.718 Personal history of other venous thrombosis and embolism; Z79.01 Long term (current) use of anticoagulants; Z79.899 Other long term (current) drug therapy; Z88.8 Allergy status to other drugs, medicaments and biological substances
CPT/HCPCS: 36415; 71045; 80053; 83735; 83880; 84484; 85025; 93005; 93010; 94640; 94664; 94760; 96374; 99285-25; A9270; G0378; J0612